=== PATIENT | female | born 1995 | race Caucasian/White ===

== ENCOUNTER 2017-03-20 06:14 | Emergency (ER) | payer OTHER ==
[2017-03-20] MEDS ORDERED: KETOROLAC 30 MG/ML VIAL (J1885) IV ONE (06:45)
[2017-03-20] MEDS ORDERED: MORPHINE 4 MG/ML 1ML SYRINGE IV ONE (06:45)
[2017-03-20] MEDS ORDERED: NS 1,000 ML IV ONE ×2 (06:45)
[2017-03-20 07:23] LABS: BASO % 0.4 % (0.0-1.0); EOS # 0.1 K/mm3 (0.0-0.50); EOS % 1.8 % (0.0-3.0); LARGE UNSTAINED CELL # 0.1 K/mm3 (0.0-0.4); LARGE UNSTAINED CELL % 2.3 % (0.0-4.0); LYMPH # 2.6 K/mm3 (1.5-6.5); LYMPH % 45.4 % (24.0-44.0); MEAN CORPUSCULAR HEMOGLOBIN 33.3 pg (27.0-33.0); MEAN CORPUSCULAR HGB CONC 36.2 g/dl (32.0-36.5); MONO # 0.4 K/mm3 (0.0-0.8); MONO % 6.6 % (0.0-5.0); NEUTROPHILS # 2.5 K/mm3 (1.8-7.7); NEUTROPHILS % 43.5 % (36.0-66.0); PLATELET COUNT, AUTOMATED 242 k/mm3 (150-450); RED CELL DISTRIBUTION WIDTH 11.5 % (11.5-14.5); WHITE BLOOD COUNT 5.8 K/mm3 (4.0-10.0)
[2017-03-20 07:31] LABS: CONTROL LINE HCG INT CTR LINE PRESENT
[2017-03-20 07:43] LABS: ALBUMIN 4.1 GM/DL (3.2-5.2); ALBUMIN/GLOBULIN RATIO 1.37 (1.00-1.93); ALKALINE PHOSPHATASE 59 U/L (45-117); ALT/SGPT 21 U/L (12-78); AMYLASE 45 U/L (25-115); ANION GAP 7 MEQ/L (8-16); AST/SGOT 10 U/L (15-37); BILIRUBIN,DIRECT 0.2 MG/DL (0.0-0.2); BILIRUBIN,TOTAL 0.5 MG/DL (0.2-1.0); BLOOD UREA NITROGEN 15 MG/DL (7-18); CALCIUM LEVEL 8.6 MG/DL (8.5-10.1); CARBON DIOXIDE LEVEL 26 MEQ/L (21-32); CHLORIDE LEVEL 109 MEQ/L (98-107); CREATININE FOR GFR 0.78 MG/DL (0.55-1.02); GLUCOSE, FASTING 102 MG/DL (70-105); POTASSIUM SERUM 4.1 MEQ/L (3.5-5.1); SODIUM LEVEL 142 MEQ/L (136-145); TOTAL PROTEIN 7.1 GM/DL (6.4-8.2)
--- NOTE | 2017-03-20 08:15 | REP ---
CT abdomen and pelvis without IV or oral contrast: Renal stone protocol. History: Left-sided renal colic. Comparison CT study April 18, 2016 showed a left distal ureteral calculus and a lower pole intrarenal calculus on the right. Findings: Digital preliminary printing table hand radiograph demonstrates an unremarkable bowel gas pattern. Umbilical jewelry and a vaginal tampon are seen. The lung bases are clear. The liver and spleen remain normal in size, homogeneous in texture. No adrenal lesion is seen. The gallbladder and the pancreas are unremarkable. A normal appendix is seen in the right mid pelvis. The uterus is retroflexed and retroverted but otherwise unremarkable. No ovarian abnormality is seen. There is mild to moderate left-sided hydronephrosis and hydroureter. A 3 mm distal ureteral calculus is believed to be visible on axial CT image number 130 of 160. This appears to be identical in position and appearance from the April 18, 2016 study. There is a phlebolith lower in the pelvis. No other ureteral calculus is seen. An intrarenal 4 mm calculus is again noted in the right kidney. No right-sided hydronephrosis is seen. Exam is otherwise unremarkable. Impression: Mild to moderate left-sided hydronephrosis due to a 3 mm calculus in the distal ureter just above the ureterovesical junction. There is an intrarenal calculus in the right kidney lower pole without right-sided hydronephrosis. These findings are essentially unchanged from the April 18, 2016 CT findings. Signed by Luis De Leon MD 03/20/2017 09:54 A
[2017-03-20] MEDS ORDERED: KETO10TAB PO (08:31)
[2017-03-20] MEDS ORDERED: FLOM5CAP PO (08:32)
[2017-03-20] MEDS ORDERED: PERC5TAB12 PO (08:32)
[2017-03-20 09:40] VITALS: BP 121/72
[2017-03-20] MEDS ORDERED: ZOFR4TAB3 PO (09:58)
== END 2017-03-20 10:01 | disposition home or self-care (01) ==
LOC: M ED 06:14
DX: N20.1 Calculus of ureter (principal); Z87.442 Personal history of urinary calculi; Z79.899 Other long term (current) drug therapy
CPT/HCPCS: 74176; 80048; 80076; 81001; 82150; 83690; 84703; 85025; 87086; 96361; 96374; 96375; 99283; J1885

== ENCOUNTER 2017-08-24 13:13 | Emergency (ER) | payer OTHER | END 2017-08-24 14:27 | disposition home or self-care (01) | LOC: M ED 13:13 | DX: J01.90 Acute sinusitis, unspecified (principal); H66.90 Otitis media, unspecified, unspecified ear | CPT/HCPCS: 99283 ==

== ENCOUNTER → 2017-12-06 | Outpatient (CLI) | payer OTHER | LOC: M OUTALCOH 13:04 | DX: Z13.9 Encounter for screening, unspecified (principal); F10.20 Alcohol dependence, uncomplicated ==

== ENCOUNTER 2017-12-17 10:24 | Outpatient (RCR) | payer OTHER | END 2017-12-27 | LOC: M OUTALCOH 12-20 10:00 | DX: F10.20 Alcohol dependence, uncomplicated (principal) ==

== ENCOUNTER 2017-12-31 10:08 | Outpatient (RCR) | payer OTHER | END 2018-01-26 | LOC: M OUTALCOH 10:08 | DX: F10.20 Alcohol dependence, uncomplicated (principal) ==

== ENCOUNTER 2018-01-29 13:49 | Outpatient (RCR) | payer OTHER | END 2018-02-26 | LOC: M OUTALCOH 01-31 10:00 | DX: F10.20 Alcohol dependence, uncomplicated (principal) ==

== ENCOUNTER 2018-04-02 11:28 | Outpatient (RCR) | payer OTHER | END 2018-04-28 | LOC: M OUTALCOH 11:28 | DX: F10.20 Alcohol dependence, uncomplicated (principal) ==

== ENCOUNTER 2018-05-07 14:58 | Outpatient (RCR) | payer OTHER | END 2018-05-29 | LOC: M OUTALCOH 05-27 16:00 | DX: F10.20 Alcohol dependence, uncomplicated (principal) ==

== ENCOUNTER 2018-06-03 14:04 | Outpatient (RCR) | payer OTHER | END 2018-06-28 | LOC: M OUTALCOH 06-10 16:00 | DX: F10.20 Alcohol dependence, uncomplicated (principal) ==

== ENCOUNTER 2018-07-25 11:30 | Outpatient (RCR) | payer OTHER ==
[~2018-07-25 11:30] MED LIST: CEFD1CAP8 PO; CLAR5TAB7 PO; FLOM0.4C39 PO; IBUP-1114 PO; KETO10TAB PO; PERC5TAB12 PO; ZOFR4TAB14 PO
== END 2018-07-29 ==
LOC: M OUTALCOH 11:30
PROVIDERS: ATTEND Psychiatry & Neurology Psychiatry
DX: F10.20 Alcohol dependence, uncomplicated (principal)

== ENCOUNTER → 2018-08-20 | Outpatient (REF) | payer OTHER | LOC: M SFHCPLAZ 13:11 | PROVIDERS: ATTEND Family Medicine | DX: Z12.4 Encounter for screening for malignant neoplasm of cervix (principal) ==

== ENCOUNTER → 2018-08-20 | Outpatient (REF) | payer OTHER ==
[2018-08-20 15:27] LABS: CHLAMYDIA DNA AMPLIFICATION NEGATIVE (NEGATIVE); GC DNA AMPLIFICATION NEGATIVE (NEGATIVE)
== END ==
LOC: M SFHCPLAZ 13:03
PROVIDERS: ATTEND Family Medicine
DX: Z11.3 Encounter for screening for infections with a predominantly sexual mode of transmission (principal)

== ENCOUNTER 2018-08-28 11:00 | Outpatient (RCR) | payer OTHER | END 2018-08-29 | LOC: M OUTALCOH 11:00 | PROVIDERS: ATTEND Psychiatry & Neurology Psychiatry | DX: F10.20 Alcohol dependence, uncomplicated (principal) ==

== ENCOUNTER 2018-10-09 11:45 | Outpatient (RCR) | payer OTHER | END 2018-10-27 | LOC: M OUTALCOH 11:45 | PROVIDERS: ATTEND Psychiatry & Neurology Psychiatry | DX: F10.20 Alcohol dependence, uncomplicated (principal) ==

== ENCOUNTER → 2018-11-12 | Outpatient (REF) | payer OTHER ==
[2018-11-12 12:07] LABS: BASO # 0.1 10^3/uL (0.0-0.2); BASO % 0.9 % (0.0-1.0); EOS # 0.1 10^3/uL (0.0-0.50); EOS % 1.7 % (0.0-3.0); HEMOGLOBIN 15.2 g/dl (12.0-15.5); LYMPH # 2.4 10^3/uL (1.5-6.5); LYMPH % 43.6 % (24.0-44.0); MEAN CORPUSCULAR HEMOGLOBIN 31.5 pg (27.0-33.0); MEAN CORPUSCULAR HGB CONC 34.5 g/dl (32.0-36.5); MEAN CORPUSCULAR VOLUME 91.1 fl (80.0-96.0); MONO # 0.5 10^3/uL (0.0-0.8); MONO % 8.5 % (0.0-5.0); NEUTROPHILS # 2.5 10^3/uL (1.8-7.7); NEUTROPHILS % 45.1 % (36.0-66.0); PLATELET COUNT, AUTOMATED 279 10^3/uL (150-450); RED BLOOD COUNT 4.83 10^6/uL (4.00-5.40); WHITE BLOOD COUNT 5.4 10^3/uL (4.0-10.0)
== END ==
LOC: M SFHCPLAZ 08:50
PROVIDERS: ATTEND Family Medicine
DX: R09.89 Other specified symptoms and signs involving the circulatory and respiratory systems (principal)

== ENCOUNTER → 2018-11-18 | Outpatient (CLI) | payer OTHER ==
--- NOTE | 2018-11-18 13:55 | REP ---
ULTRASOUND SOFT TISSUES NECK: Real-time sonographic evaluation of soft tissues of neck performed posteriorly in the region of reported palpable abnormality. On the left, in the posterior neck soft tissues, a normal-sized lymph node is seen measuring 11 x 10 x 5 mm and another is seen 9 x 6 x 3 mm. On the right posterolaterally in the soft tissues of the neck, there are several normal-sized lymph nodes, largest measures 12 x 12 x 2 mm, with four other subcentimeter lymph nodes identified. IMPRESSION: Multiple normal-sized lymph nodes seen in the posterior neck soft tissues bilaterally.
== END ==
LOC: M WHC 10:36
PROVIDERS: ATTEND Family Medicine
DX: R09.89 Other specified symptoms and signs involving the circulatory and respiratory systems (principal)

== ENCOUNTER → 2018-11-26 | Outpatient (RCR) | payer OTHER ==
[~2018-11-26] MED LIST changes: +SULF1TAB93; +ZOFR4TAB16 PO
== END ==
LOC: M OUTALCOH 13:54
PROVIDERS: ATTEND Psychiatry & Neurology Psychiatry
DX: F10.20 Alcohol dependence, uncomplicated (principal)

== ENCOUNTER → 2018-11-30 | Outpatient (REF) | payer OTHER | LOC: M LAB REF 10:20 | PROVIDERS: ATTEND Physician Assistant | DX: R30.0 Dysuria (principal) ==

== ENCOUNTER 2018-12-03 12:16 | Emergency (ER) | payer OTHER ==
[~2018-12-03] VITALS: Ht 172.7 cm; Wt 68.4 kg
[~2018-12-03 12:16] MED LIST changes: -SULF1TAB93; -ZOFR4TAB16 PO
[2018-12-03] MEDS ORDERED: SULF1TAB93 (12:24)
[2018-12-03] MEDS ORDERED: NS 1,000 ML IV ONE (12:45)
[2018-12-03 12:54] LABS: BASO % 0.9 % (0.0-1.0); EOS # 0.1 10^3/uL (0.0-0.50); EOS % 1.1 % (0.0-3.0); HEMATOCRIT 40.1 % (36.0-47.0); HEMOGLOBIN 14.3 g/dl (12.0-15.5); LYMPH # 1.8 10^3/uL (1.5-6.5); MEAN CORPUSCULAR HEMOGLOBIN 31.6 pg (27.0-33.0); MEAN CORPUSCULAR HGB CONC 35.7 g/dl (32.0-36.5); MEAN CORPUSCULAR VOLUME 88.7 fl (80.0-96.0); MONO # 0.5 10^3/uL (0.0-0.8); MONO % 10.2 % (0.0-5.0); NEUTROPHILS # 2.2 10^3/uL (1.8-7.7); NEUTROPHILS % 47.8 % (36.0-66.0); PLATELET COUNT, AUTOMATED 256 10^3/uL (150-450); RED BLOOD COUNT 4.52 10^6/uL (4.00-5.40); WHITE BLOOD COUNT 4.5 10^3/uL (4.0-10.0)
[2018-12-03] MEDS ORDERED: ONDANSETRON 4MG/2ML VIAL (J2405) IV ONE (13:15)
[2018-12-03] MEDS ORDERED: KETOROLAC 30 MG/ML VIAL (J1885) IV ONE (13:15)
[2018-12-03] MEDS ORDERED: MORPHINE 4 MG/ML 1ML VIAL/SYRINGE (J2270) IV ONE (13:15)
[2018-12-03 13:20] LABS: BLOOD UREA NITROGEN 11 MG/DL (7-18); CALCIUM LEVEL 9.1 MG/DL (8.5-10.1); CARBON DIOXIDE LEVEL 22 MEQ/L (21-32); CHLORIDE LEVEL 109 MEQ/L (98-107); CREATININE FOR GFR 1.05 MG/DL (0.55-1.30); GLOMERULAR FILTRATION RATE > 60.0 (>60); GLUCOSE, FASTING 101 MG/DL (70-100); POTASSIUM SERUM 3.9 MEQ/L (3.5-5.1); SODIUM LEVEL 139 MEQ/L (136-145)
[2018-12-03 13:54] LABS: HCG, SERUM QUANTITATIVE < 1.0 MIU/ML
--- NOTE | 2018-12-03 14:43 | REP ---
CT ABDOMEN AND PELVIS WITHOUT CONTRAST: CT abdomen and pelvis performed without oral or IV contrast. Sagittal and coronal reconstruction images are performed. Comparison made with prior study of . The visualized lung bases are clear. The liver, spleen, adrenals, and pancreas are grossly unremarkable. There are a few tiny intrarenal calculi bilaterally. There is mild to moderate right hydroureteronephrosis which is caused by a 4 mm calculus in the distal right ureter. There is no abdominal aortic aneurysm. There is no gross adenopathy. There is no free air or free fluid. There is no bowel wall thickening. I see no pelvic mass with a dominant follicle of the left ovary measuring slightly greater than 2 cm in diameter. IMPRESSION: There is a 4 mm calculus in the distal right ureter causing mild to moderate right hydroureteronephrosis. There are also a few tiny intrarenal calculi bilaterally. Electronically Signed by Milan Garcia MD 12/04/2018 03:28 P
[2018-12-03] MEDS ORDERED: PERC5TAB12 PO (14:58)
[2018-12-03] MEDS ORDERED: ZOFR4TAB16 PO (14:58)
[2018-12-03 15:17] VITALS: BP 131/67
== END 2018-12-03 15:20 | disposition home or self-care (01) ==
LOC: M ED 12:16
DX: N20.1 Calculus of ureter (principal); N20.0 Calculus of kidney; N23 Unspecified renal colic
CPT/HCPCS: 74176; 80048; 81001; 84702; 85025; 96361; 96374; 96375; 99284; J1885; J2270; J2405

== ENCOUNTER 2019-01-06 09:06 | Outpatient (RCR) | payer OTHER ==
[~2019-01-06 09:06] MED LIST changes: +SULF1TAB93; +ZOFR4TAB16 PO
== END 2019-01-26 ==
LOC: M OUTALCOH 09:06
PROVIDERS: ATTEND Psychiatry & Neurology Psychiatry
DX: F10.20 Alcohol dependence, uncomplicated (principal)

== ENCOUNTER 2019-02-21 10:00 | Outpatient (RCR) | payer OTHER | END 2019-02-26 | LOC: M OUTALCOH 10:00 | PROVIDERS: ATTEND Psychiatry & Neurology Psychiatry | DX: Z03.89 Encounter for observation for other suspected diseases and conditions ruled out (principal) ==

== ENCOUNTER 2020-01-01 01:19 | Emergency (ER) | payer OTHER ==
[~2020-01-01] VITALS: Ht 172.7 cm; Wt 71.2 kg
[2020-01-01 01:20] VITALS: BP 118/65
[2020-01-01] MEDS ORDERED: ACET-683 PO (01:23)
[2020-01-01] MEDS ORDERED: NS 1,000 ML IV ONE (02:15)
[2020-01-01] MEDS ORDERED: KETOROLAC 30 MG/ML 1ML VIAL IV ONE (02:15)
[2020-01-01 02:41] LABS: BASO # 0.1 10^3/uL (0.0-0.2); BASO % 0.7 % (0.0-1.0); EOS # 0.2 10^3/uL (0.0-0.5); HEMATOCRIT 44.4 % (36.0-47.0); LYMPH # 3.9 10^3/uL (1.5-5.0); LYMPH % 48.3 % (24.0-44.0); MEAN CORPUSCULAR HEMOGLOBIN 31.4 pg (27.0-33.0); MEAN CORPUSCULAR HGB CONC 33.8 g/dl (32.0-36.5); MEAN CORPUSCULAR VOLUME 93.1 fl (80.0-96.0); MONO # 0.7 10^3/uL (0.0-0.8); MONO % 8.7 % (0.0-5.0); NEUTROPHILS # 3.2 10^3/uL (1.5-8.5); NEUTROPHILS % 40.2 % (36.0-66.0); PLATELET COUNT, AUTOMATED 301 10^3/uL (150-450); RED BLOOD COUNT 4.77 10^6/uL (4.00-5.40)
[2020-01-01 03:10] LABS: ALBUMIN 4.1 GM/DL (3.2-5.2); ALT/SGPT 23 U/L (12-78); BILIRUBIN,DIRECT < 0.1 MG/DL (0.0-0.2); BILIRUBIN,TOTAL 0.4 MG/DL (0.2-1.0); LIPASE 129 U/L (73-393); TOTAL PROTEIN 7.4 GM/DL (6.4-8.2)
--- NOTE | 2020-01-01 03:44 | REPVR ---
PROCEDURE INFORMATION: Exam: CT Abdomen And Pelvis Without Contrast Exam date and time: 01/01/2020 2:11 AM Age: 24 years old Clinical indication: Abdominal pain; Flank; Left; Additional info: Left flank pain TECHNIQUE: Imaging protocol: Computed tomography of the abdomen and pelvis without contrast. Radiation optimization: All CT scans at this facility use at least one of these dose optimization techniques: automated exposure control; mA and/or kV adjustment per patient size (includes targeted exams where dose is matched to clinical indication); or iterative reconstruction. COMPARISON: CT ABD PELVIS W/O CONTRAST 12/03/2018 2:04 PM FINDINGS: Liver: Normal. No mass. Gallbladder and bile ducts: Contracted gallbladder. No ductal dilatation. Pancreas: Normal. No ductal dilation. Spleen: Normal. No splenomegaly. Adrenals: Normal. No mass. Kidneys and ureters: In the expected location of the distal left ureter just proximal to the left ureterovesical junction there is 2.3 mm calcification with mild surrounding soft tissue prominence may represent obstructing stone in the distal left ureter. Clinical correlation and follow-up is recommended. No obvious hydroureteronephrosis is seen bilaterally. Punctate stone in the lower pole of the left kidney. 1-2 mm nonobstructing stones in the right kidney. Stomach and bowel: Unremarkable. No obstruction. No mucosal thickening. Appendix: No evidence of appendicitis. Intraperitoneal space: Unremarkable. No free air. No significant fluid collection. Vasculature: Unremarkable. No abdominal aortic aneurysm. Lymph nodes: Unremarkable. No enlarged lymph nodes. Bladder: Unremarkable as visualized. Reproductive: Dominant follicle in the left ovary measuring 14.3 mm. Retroverted uterus. Right ovary is unremarkable. Bones/joints: Unremarkable. No acute fracture. Soft tissues: Unremarkable. IMPRESSION: In the expected location of the distal left ureter just proximal to the left ureterovesical junction there is 2.3 mm calcification with mild surrounding soft tissue prominence may represent obstructing stone in the distal left ureter. Clinical correlation and follow-up is recommended. No obvious hydroureteronephrosis is seen bilaterally. Punctate stone in the lower pole of the left kidney. 1-2 mm nonobstructing stones in the right kidney. Electronically signed by: Adelaida Zaldivar On 01/01/2020 03:44:11 AM
[2020-01-01] MEDS ORDERED: KETO10TAB PO (04:30)
[2020-01-01] MEDS ORDERED: NORC1TAB7 PO (04:30)
[2020-01-01] MEDS ORDERED: FLOM0.4C39 PO (04:30)
[2020-01-01] MEDS ORDERED: KEFL500C17 PO (04:31)
[2020-01-01] MEDS ORDERED: NORCO, ANEXSIA 5/325MG TABLET (HYDROcodone/ACETAMINOPHEN) PO ONE (04:45)
== END 2020-01-01 04:37 | disposition home or self-care (01) ==
LOC: M ED 01:19
DX: N20.1 Calculus of ureter (principal); Z77.098 Contact with and (suspected) exposure to other hazardous, chiefly nonmedicinal, chemicals
CPT/HCPCS: 36415; 74176; 80047; 80076; 81001; 83690; 84702; 85025; 93041; 96361; 96374; 99284; J1885

== ENCOUNTER 2020-12-15 16:59 | Emergency (ER) | payer OTHER, SELFPAY ==
[~2020-12-15] VITALS: Ht 172.7 cm; Wt 65.9 kg
[~2020-12-15 16:59] MED LIST changes: +ACET-683 PO; +BACTDSTA; +KEFL500C17 PO; +NORC1TAB7 PO; -SULF1TAB93
[2020-12-15] MEDS ORDERED: KETOROLAC 30 MG/ML 1ML VIAL IV ONE (19:30)
[2020-12-15] MEDS ORDERED: ONDANSETRON 4MG/2ML VIAL IV ONE (19:30)
[2020-12-15] MEDS ORDERED: NS 1,000 ML IV ONE (19:30)
[2020-12-15 20:18] LABS: BASO % 0.4 % (0.0-1.0); EOS # 0.1 10^3/uL (0.0-0.5); EOS % 0.8 % (0.0-3.0); HEMATOCRIT 44.7 % (36.0-47.0); HEMOGLOBIN 15.2 g/dl (12.0-15.5); LYMPH # 2.9 10^3/uL (1.5-5.0); LYMPH % 39.2 % (24.0-44.0); MEAN CORPUSCULAR HEMOGLOBIN 32.1 pg (27.0-33.0); MEAN CORPUSCULAR VOLUME 94.5 fl (80.0-96.0); MONO # 0.6 10^3/uL (0.0-0.8); MONO % 7.7 % (2.0-8.0); NEUTROPHILS # 3.8 10^3/uL (1.5-8.5); NEUTROPHILS % 51.5 % (36.0-66.0); PLATELET COUNT, AUTOMATED 270 10^3/uL (150-450); RED BLOOD COUNT 4.73 10^6/uL (4.00-5.40); WHITE BLOOD COUNT 7.3 10^3/uL (4.0-10.0)
[2020-12-15 20:46] LABS: ALBUMIN 4.5 GM/DL (3.2-5.2); BILIRUBIN,DIRECT 0.2 MG/DL (0.0-0.2); BILIRUBIN,TOTAL 0.7 MG/DL (0.2-1.0)
[2020-12-15 21:15] VITALS: BP 123/61
--- NOTE | 2020-12-15 21:25 | REPVR ---
PROCEDURE INFORMATION: Exam: US Retroperitoneal Limited, Kidneys Exam date and time: 12/15/2020 8:37 PM Age: 25 years old Clinical indication: Pain; Other: Flank /groin lt; Additional info: Left flank pain, HX stones TECHNIQUE: Imaging protocol: Real-time ultrasound of the retroperitoneum with image documentation. Examination was focused on the kidneys. COMPARISON: CT ABD PELVIS W/O CONTRAST 01/01/2020 3:02 AM FINDINGS: Right kidney: Right kidney measures 11.3 x 3.4 by 4.2 centimetres. No hydronephrosis. Left kidney: Left kidney measures 11.8 x 5.1 by 5.7 cm. No hydronephrosis. Bladder: Bladder measures 7.4 x 7.4 by 2.6 cm. Ovaries: There is a cyst in the left adnexa measuring 3.2 by 4.7 x 3.4 cm. IMPRESSION: 1. Normal renal ultrasound. No hydronephrosis. 2. 4.7 cm cyst in left adnexa Electronically signed by: Lizbeth Benitez On 12/15/2020 21:24:47 PM
[2020-12-15] MEDS ORDERED: NORCO 5/325MG TABLET (BULK FOR ED) PO ONE (21:40)
== END 2020-12-15 22:03 | disposition home or self-care (01) ==
LOC: M ED 16:59
DX: R10.9 Unspecified abdominal pain (principal); R11.0 Nausea; N83.202 Unspecified ovarian cyst, left side; R79.89 Other specified abnormal findings of blood chemistry
CPT/HCPCS: 76775; 80047; 80076; 81001; 83690; 84702; 85025; 93976; 96361; 96374; 96375; 99284; J1885; J2405